=== PATIENT | male | born 1940 | race Caucasian/White ===

== ENCOUNTER 2025-06-07 10:07 | Outpatient (AMB) | payer OTHER, SELFPAY ==
--- NOTE | 2025-06-07 10:12 | A.OFFVIS_ITS ---
Intake Visit Reasons: 6 months f/u Allergies No Known Allergies Allergy (Verified 06/02/25 14:14) Medication List - Last Reconciled 06/07/25 by Sandra Judge MD atorvastatin 40 mg PO DAILY carbidopa-levodopa 25-100 mg tabs PO TID metoprolol succinate ER 50 mg PO DAILY rasagiline 1 mg PO DAILY HPI Comments Details: 85 yr old man with parkinson's disease. He feel sthat his tremor of R hand hasincreased but does not impair him functionally. He is also told that he does not smile. Has had more stumbles. No falls. No trouble turning in bed. Doing okay overall. Tremor is brief and intermittent, primarily in left hand alt with right hand . No difficulty eating/drinking or swallowing. Does not brick picker his feet as well when walking, no falls. Has some stiffness when standing from chair. Sleep is okay. No significant change in cognitive abilities. Started doing some exercises.? Voice is softer and sometimes asks him to speak louder and says he does not speak clearly. His handwriting has always been terrible and has not changed. Left hand tremor started in 2018. [facility] Medical History (Updated 06/07/25 @ 10:14 by Sandra Judge MD) Hyperlipidemia Angina pectoris Parkinson disease Review of Systems Const Details: ??General/Constitutional:? Change in appetitedenies.? Chillsdenies.? Fatiguedenies.? Feverdenies.? Weight gaindenies.? Weight lossdenies. ???Sleep:? Difficulty getting to sleepdenies.? Difficulty maintaining sleepdenies?.? Urge to move legsdenies.? Teeth grindingdenies.? Shouting or Kicking during sleep denies.? Abnormal behavior during sleepdenies.? Excessive sleepdenies.? Snoring denies.? Daytime sleepinessdenies. ???Respiratory:? Shortness of breathdenies.? Chest paindenies.? Coughdenies. ???Cardiovascular:? Chest pain at restdenies.? Chest pain with exertionadmits.? Claudicationdenies .? Dizzinessdenies.? Fluid accumulation in the legsdenies.? Irregular heartbeat denies.? Palpitationsdenies. ???Gastrointestinal:? Abdominal paindenies.? Constipationdenies.? Diarrheadenies.? Difficulty swallowingdenies.? Heartburndenies.? Nauseadenies.? Rectal bleedingdenies. ???Genitourinary:? Frequent urinationdenies.? Urgencydenies.? Incontinencedenies.? Erectile Dysfunctiondenies. ???Musculoskeletal:? Neck paindenies.? Back paindenies.? Muscle achesdenies.? Painful jointsdenies.? Sciaticadenies.? Weaknessdenies. ???Neurologic:? Difficulty swallowingdenies.? Balance difficultydenies.? Coordinationnormal.? Difficulty speakingdenies.? Dizzinessdenies.? Faintingdenies.? Gait abnormality denies.? Headachedenies.? Loss of strengthdenies.? Loss of use of extremity denies.? Low back paindenies.? Memory lossdenies.? Seizuresdenies.? Ticsdenies.? Tingling/Numbnessdenies.? Transient loss of visiondenies.? Tremoradmits. ???Psychiatric:? Anxietydenies.? Auditory/visual hallucinationsdenies.? Delusionsdenies.? Depressed mooddenies.? Stressorsdenies.? Substance abusedenies.? Suicidal thoughtsdenies. Physical Exam Neuro Other: Neurological: Abnormal neurological findings:??Reduced facial expresssion and decreased blinking frequency. Forward leaning posture.?No arm swing on left. Reduced arm swing on right.?Resting Parkinsonian tremor LUE > RUE?. Increased tone and cogwheeling rigidity L > R.?Bradykinesia and?bradyphrenia.?Mental Status:??alert and oriented X 3,?Normal attention, orientation, memory and affect.?Cranial Nerves:??Pupils are equal, round and reactive to light. Fundoscopy shows normal disc bilaterally. External occular muscles are intact. Visual márquez are full, no ptosis. Face is symmetrical, no facial weakness or droop. Facial sensations are normal. Tongue protrudes in midline. Palate elevates symmetrically. Shoulder shrugging is normal..?Motor Examination:??As above,?otherwise normal muscle tone, bulk and strength,No atrophy or fasciculations,No drift of the extended upper extremities,Deep tendon reflexes are 2+.?Straight Leg Raising:??90 degrees.?Sensory Exam:??Normal light touch, temperature, pinprick, vibration and joint-position sensations?,?Rhomberg sign is absent.?Coordination:??no ataxia,?no titubation.?Gait Exam:??Forward leaning posture, no arm swing on left, reduced arm swing on right.?Cerebellar Signs:??Obxeog-xk-jijf and jjdz-jp-meui is normal,?no dysdiadochokinesia?.?Extrapyramidal System:??Tremor, tone/rigidity, facial expressions, arm swing, and posture as above. Bradykinesia and?bradyphrenia.?.?Speech:??Normal.? Mini Mental Status Exam: Level of Consciousness:??Alert.?Orientation:??Knows correct year, month, date, day and season,?Knows correct city, county and state. Knows correct location and floor.?Registration:??Able to register 3 objects.?Attention:??Serial 7's performed accurately.?Recall:??Able to recall 3 out of 3 ob jects.?Language:??Normal spontaneous speech, fluency, repetition,naming, comprehension, reading and writing.?Total Score:??30/30.? General Examination: GENERAL APPEARANCE:??normal,?in no acute distress.?HEART:??S1, S2 normal,?no murmurs.?LUNGS:??clear anteriorly and posteriorly.?MUSCULOSKELETAL:??normal.?EXTREMITIES:??no edema.?PSYCH:??alert, oriented,?cognitive function intact,?cooperative with exam.? Assessment & Plan Assessment & Plan (1) Parkinson disease: Code(s): G20 - Parkinson's disease Category: Medical Plan Increase Olqkidtac-Y-eman to 1 whole tab tid from 08/04 tab tid Coding Level of Care Code Est Pt Level 4 (78668) Diagnoses Parkinson disease G20
--- OUTSIDE RECORDS SUMMARY | 2025-06-07 11:40 | XMS_ITS | Clinical Summary ---
Author Organization [facility] [address] [place] [address] [place] [phone] Phone Care Team Providers Care Trouble Dispatcher Name Role Phone Cherise Santana MD Primary Care Provider [phone] Allergies No known active allergies Medications aspirin 81 mg EC tablet Take 1 tablet (81 mg total) by mouth 1 (one) time each day. 08/12/2016 Active carbidopa-levod opa (SINEMET) 25-100 mg per tablet Take 0.5 tablets by mouth. 06/22/2019 Active docosahexaenoic acid/epa (FISH OIL ORAL) 1 CAP DAILY Active rasagiline (AZILECT) 1 mg tablet Take 1 tablet (1 mg total) by mouth 1 (one) time each day. 07/21/2019 Active nitroglycerin (NITROSTAT) 0.[address] 1 tablet (0.4 mg total) under the tongue every 5 (five) minutes if needed for chest pain. May repeat dose every 5 minutes for up to 3 doses total. 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[employer] and at the time that he reported symptoms, he would have to walk to a class that was up on the top of a hill-while he was traversing this hill, sometimes at a quick pace he would experience the symptoms - Stress test was performed in August 2016-patient exercised for almost 9 minutes on a standard Demetrius protocol to 92% of max predicted heart rate with small, mild, basal inferior ischemia with normal TID ratio and normal systolic function - Was initiated on metoprolol, atorvastatin, aspirin-see further history below -Most recent echocardiogram on 08/14/2022 showing mild, concentric left ventricular hypertrophy with normal LV cavity size and systolic function, normal regional wall motion with ejection fraction of 60 to 65%, normal RV size and systolic function, no hemodynamically significant valve disease, likely upper normal ascending aorta 3.8 cm and mildly dilated transverse aorta 3.1 cm, normal left ventricular diastolic function, normal pulmonary artery systolic pressure Assessment & Plan (02/07/2025 11:37 AM EDT): Assessment & Plan (11/09/2024 10:44 PM EDT): He is not really having symptoms anymore because he no longer goes to [employer] where he would traverse a large hill from the parking lot to his class. He has not had to do this in over a year, so he has not had any anginal symptoms. However, he would like to start going back to the gym, which I think is a great idea. A prescription for sublingual nitroglycerin 10 tablets has been provided, which he is a little bit leery about. I reassured him that he just has to keep it around for emergencies and instructed him on the proper use. He is advised to use it only if he experiences chest pain with exertion. If he experiences chest pressure or elbow discomfort at rest, he should take one tablet and call 911. In the meantime continue current toprol, statin, and aspirin. 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 On Sinemet and rasagiline 2019 Assessment & Plan (02/07/2025 11:37 AM EDT): Pure hypercholesterolemia 04/29/2017 Assessment & Plan (02/07/2025 11:37 AM EDT): Assessment & Plan (11/09/2024 10:44 PM EDT): He is on atorvastatin 40 mg at bedtime for hyperlipidemia management. This medication will be continued. Primary hypertension 08/08/2013 Assessment & Plan (02/07/2025 11:37 AM EDT): Assessment & Plan (11/09/2024 10:44 PM EDT): His blood pressure is well controlled on low-dose metoprolol alone. He has not had any significant lightheadedness or falls. The current regimen of low-dose metoprolol will be continued. 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 Seen by Neuro. Tests negative. Elevated PSA 12/12/2011 Overview (01/23/2025): X1 only in 2005, seen by Uro, biopsy showed PIN but pt did not follow up Assessment & Plan (02/07/2025 11:37 AM EDT): Resolved Problems Problem Noted Date Diagnosed Date Resolved Date Angina of effort ([facility] V24) 08/19/2016 11/09/2024 Immunizations Immunization Administration Dates Next Due COVID-19 (Moderna/Spikevax) 12yo and older 07/24/2023 Influenza Quadravalent, 0.5m l (Fluad) 65yo and older 04/25/2022 Influenza Quadravalent, 0.5m l (Fluzone High-dose) 65yo and older 06/19/2023,04/10/2021 Influenza Quadravalent, MDCK , 0.5ml, preservative free (Flucelvax) 6mo and older 08/23/2019,08/10/2018 Influenza trivalent, 0.5mL ( Fluzone High-dose) 65yo and older 05/02/2024,06/19/2023,04/25/2022,04/10,04/06/2020,05/10/2016 Moderna (age 6mo & older) Bi valent, COVID-19, 0.5 mL or 0.25 mL dosage 12/08/2022,04/25/2022 Moderna SARS-CoV-2 COVID-19, mRNA, LNP-S, preservative free 07/24/2023 Pneumococcal conjugate 13 va lent (Prevnar 13, PCV13) 2mo and older 08/20/2015 Pneumococcal polysaccharide 23 valent (Pneumovax 23) 2yo and older 10/01/2007 Td Tetanus diptheria (Tdvax) 7yo and older 02/03/2024,08/24/2008,04/09/1999 Tdap Tetanus diptheria acell ular pertussis (Boostrix; Adacel) 7yo and older 08/08/2013 Zoster Live 04/21/2012 Zoster recombinant (Shingrix ) 19yo and older 01/19/2020,09/24/2019 Surgical History Surgery Date Site/Laterality Comments COLONOSCOPY 12/29/07 PROCEDURE: MO COLONOSCOPY STOMA DX INCLUDING COLLJ SPEC SPX; COMMENT: Normal colon exam, up to cecum, regular/good preparation OTHER SURGICAL HISTORY PROCEDURE: HISTORY OTHER; COMMENT: prostate TRUSP 2006 - PIN (Dr. 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 Single episode in 2007. Seen by Neuro. Tests negative. Pure hypercholesterolemia 04/29/2017 Primary hypertension 08/08/2013 Prediabetes 08/05/2023 Elevated PSA 12/12/2011 Formatting of th is note might be different from the original. 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[employer] and at the time that he reported symptoms, he would have to walk to a class that was up on the top of a hill-while he was traversing this hill, sometimes at a quick pace he would experience the symptoms- Stress test was perf Family History Medical History Relation Name Comments Alzheimer's disease Brother age 74 Colon cancer Father in his 60's, [place] Dementia Maternal Grandmother Other: old age Mother at 90 Alzheimer's disease Uncle maternal second u ncle with Parkinson's Relation Name Status Comments Brother Father Maternal Grandfather Maternal Grandmother Mother Paternal Grandfather Paternal Grandmother Uncle maternal Social History Tobacco Use Types Packs/Day Years Used Date Smoking Tobacco: Former Cigarettes Q uit: 08/03/1979 Smokeless Tobacco: Never Tobacco Cessation:Counseling Given: Not Answered Alcohol Use Standard Drinks/Week Comments Not Currently 0 (1 standard drink = 0.6 oz pur e alcohol) Housing Instability Answer Date Recorde d Are you worried that in the next 2 months you may not have stable housing? No 02/07/2025 Food Access & Nutrition Answer Date Rec orded Do you have access to a vari ety of food including fruits and vegetables? Yes 02/07/2025 Access to Healthcare Answer Date Record ed Within the last 3 months, penelope cox many times did you visit the emergency department for your medical care? 0 02/07/2025 Health Literacy Answer Date Recorded How often do you need to hav e someone help you when you read instructions, pamphlets, or other written material from your doctor or pharmacy? Never 02/07/2025 Caregiver: How often do you need to have someone help you when you read instructions, pamphlets, or other written material from your doctor or pharmacy? Not on file 02/07/2025 Financial Risk Answer Date Recorded How hard is it for you to pa y for the very basics like food, housing, medical care, and air conditioning / heating? Not very hard 02/07/2025 Transportation Answer Date Recorded Has the lack of transportati on kept you from meetings, work, or from getting things needed for daily living? No Has the lack of transportati on kept you from medical appointments or from getting medications? No 02/07/2025 Social Isolation Answer Date Recorded How often do you feel lonely or isolated from th ose around you? Never 02/07/2025 Food Risk Answer Date Recorded Within the past 12 months we worried whether our food would run out before we got money to buy more. Never true 02/07/2025 Within the past 12 months th e food we bought just didn't last and we didn't have money to get more. Never true 02/07/2025 Dependent Care Answer Date Recorded Do you need help finding or paying for care for your loved ones. For example, director of early childhood or elderly care for an older adult? No 02/07/2025 Education Answer Date Recorded Do you think completing more education or training, like finishing a GED, going to college, or learning a trade, would be helpful for you? N/A 02/07/2025 Employment and Income Answer Date Recor ded During the last four weeks, have you been actively looking for work? No 02/07/2025 Living Situation Answer Date Recorded What is your living situation? Unrecognized valu e 02/07/2025 Sex and Gender Information Value Date Recorded Sex Assigned at Not on file Legal Sex Male 11:05 PM EST Gender Identity Not on file Sexual Orientation Not on file Obstetrics History Last Filed Vital Signs Vital Sign Reading Time Taken Comments Blood Pressure 102/56 02/07/2025 10:51 AM EDT Pulse 52 02/07/2025 10:51 AM EDT Temperature 36.1 C (97 F) 02/07/2025 10:51 AM EDT Respiratory Rate 14 02/07/2025 10:51 AM EDT Oxygen Saturation 96% 02/07/2025 10:51 AM EDT Inhaled Oxygen Concentration - - Weight 72.3 kg (159 lb 6.4 oz) 02/07/2025 10:51 AM EDT Height 172.7 cm (5' 8 ) 02/07/2025 10:51 AM EDT Body Mass Index 24.24 02/07/2025 10:51 AM EDT Plan of Treatment Upcoming Encounters Date Type Department Care Team (Late st Contact Info) Description 08/10/2025 1:30 PM EST Office Visit Adult Medicine [facility] [address] [place] [phone] Miguelina Welch PA [address] [place], [place] Health Maintenance Due Date Last Done Comments RSV Immunization Adult Patients (1 - 1-dose 75+ series) 2016 COVID-19 Vaccine ( season) 2025 05/02/2024, 07/24/2023, 07/24/2023, Additional history exists Influenza Vaccine (#1) 2025 , 06/19/2023, 06/19/2023, Additional history exists Hypertension/CHF/CAD Annual BMP Blood Test 08/05/2025 08/05/2024 Falls Risk Assessment 02/07/2026 02/07/2025 Medicare Annual Wellness Visit 02/07/2026 02/07/2025 Social Influencers of Health Screening 02/07/2026 02/07/2025 Cholesterol Screening (Lipid Panel) 08/05/2029 08/05/2024, 08/04/2023 DTaP,Tdap,and Td Vaccines (5 - Td or Tdap) 02/02/2034 02/03/2024, 08/08/2013, 08/24/2008, Additional history exists Pneumococcal Vaccine: 50+ Years Completed 08/20/2015, 10/01/2007 Zoster Vaccines Completed 01/19/2020, 09/04, 04/21/2012 Depression Screening Completed 02/07/2025 HIB Vaccines Aged Out No longer eligi ble based on patient's age to complete this topic HPV Vaccines Aged Out No longer eligi ble based on patient's age to complete this topic Hepatitis A Vaccines Aged Out No long er eligible based on patient's age to complete this topic Hepatitis B Vaccines Aged Out No long er eligible based on patient's age to complete this topic IPV Vaccines Aged Out No longer eligi ble based on patient's age to complete this topic MMR Vaccines Aged Out No longer eligi ble based on patient's age to complete this topic Meningococcal ACWY Vaccine Aged Out N o longer eligible based on patient's age to complete this topic Meningococcal B Vaccine Aged Out No l onger eligible based on patient's age to complete this topic RSV Immunization Patients Under 20 months Aged Out No longer eligible based on patient's age to complete this topic Varicella Vaccines Aged Out No longer eligible based on patient's age to complete this topic Procedures Procedure Name Priority Date/Time Associated Diagnosis Comments COMPREHENSIVE METABOLIC PANEL Routine 08/05/2024 10:47 AM EST Primary hypertension Prediabetes Pure hypercholesterolemia Elevated PSA Parkinson's disease, unspecified whether dyskinesia present, unspecified whether manifestations fluctuate (CMS/HCC V24, CMS/HCC V28) LIPID PANEL WITH REFLEX TO DIRECT LDL Routine 08/05/2024 10:47 AM EST Pure hypercholesterolemia from Last 3 Months or Most Recently Relevant to Health Maintenance Results * Lipid panel with reflex to direct LDL (08/05/2024 10:47 AM EST) Cholesterol 153 0 - 200 mg/dL LAB CHEMISTRY METHOD 08/05/2024 2:11 PM [facility] Triglycerides 60 0 - 150 mg/dL LAB CHEMISTRY METHOD 08/05/2024 2:11 PM [facility] HDL 73 >=40 mg/dL LAB CHEMISTRY METHOD 08/05/2024 2:11 PM [facility] LDL Calculated 68 0 - 100 mg/dL LAB CHEMISTRY METHOD 08/05/2024 2:11 PM [facility] VLDL Cholesterol Aba 12 mg/dL LAB CHEMISTRY METHOD 08/05/2024 2:11 PM [facility] Non HDL Chol. (LDL+VLDL) 80 <145 mg/dL LAB CHEMISTRY METHOD 08/05/2024 2:11 PM [facility] Chol/HDL Ratio 2.1 0.0 - 4.4 LAB CHEMISTRY METHOD 08/05/2024 2:11 PM [facility] Blood Venous blood specimen / Unknown Venipuncture / Unknown 08/05/2024 10:47 AM EST 08/05/2024 10:47 AM EST us Miguelina YEE LAB BLOOD ORDERABLES Final Re sult [facility] [address] [place] [address], [place] [phone] * Comprehensive metabolic panel (08/05/2024 10:47 AM EST) Sodium 142 133 - 145 mmol/L LAB CHEMISTRY METHOD 08/05/2024 2:11 PM [facility] Potassium 4.3 3.5 - 5.5 mmol/L LAB CHEMISTRY METHOD 08/05/2024 2:11 PM [facility] Chloride 108 96 - 110 mmol/L LAB CHEMISTRY METHOD 08/05/2024 2:11 PM [facility] CO2 30 21 - 32 mmol/L LAB CHEMISTRY METHOD 08/05/2024 2:11 PM [facility] Anion Gap 4 3 - 11 LAB CHEMISTRY METHOD 08/05/2024 2:11 PM [facility] Glucose 99 70 - 100 mg/dL LAB CHEMISTRY METHOD 08/05/2024 2:11 PM [facility] BUN 21 5 - 25 mg/dL LAB CHEMISTRY METHOD 08/05/2024 2:11 PM [facility] Creatinine 1.12 0.70 - 1.30 mg/dL LAB CHEMISTRY METHOD 08/05/2024 2:11 PM [facility] eGFR 65 >=60 mL/min/1. 73m2 LAB CHEMISTRY METHOD 08/05/2024 2:11 PM [facility] Comment:Calculation based on the Chronic Kidney Disease Epidemiology Collaboration (CKD-EPI) equation refit without adjustment for race. BUN/Creatinine Ratio 18.8 LAB CHEMISTRY METHOD 08/05/2024 2:11 PM [facility] Calcium 9.2 8.5 - 10.5 mg/dL LAB CHEMISTRY METHOD 08/05/2024 2:11 PM [facility] AST (SGOT) 18 10 - 42 unit/L LAB CHEMISTRY METHOD 08/05/2024 2:11 PM [facility] ALT (SGPT) 16 10 - 60 unit/L LAB CHEMISTRY METHOD 08/05/2024 2:11 PM [facility] Alkaline Phosphatase 63 42 - 121 unit/L LAB CHEMISTRY METHOD 08/05/2024 2:11 PM [facility] Total Protein 6.7 6.0 - 8.0 g/dL LAB CHEMISTRY METHOD 08/05/2024 2:11 PM [facility] Albumin 3.8 3.2 - 5.0 g/dL LAB CHEMISTRY METHOD 08/05/2024 2:11 PM [facility] Total Bilirubin 0.7 0.0 - 1.4 mg/dL LAB CHEMISTRY METHOD 08/05/2024 2:11 PM [facility] Blood Venous blood specimen / Unknown Venipuncture / Unknown 08/05/2024 10:47 AM EST 08/05/2024 10:47 AM EST us Miguelina YEE LAB BLOOD ORDERABLES Final Re sult [facility] [address] [place] [address], from Last 3 Months or Most Recently Relevant to Health Maintenance Insurance MEDICARE [facility] Care Teams Trouble Dispatcher Relationship Specialty Start Date End Date Cherise Santana MD [address] [place] [address] PCP - General Internal Medicine 01/01/21
== END 2025-06-07 10:22 | disposition home or self-care (01) ==
LOC: HO.HSM 10:07
PROVIDERS: PCP Internal Medicine; Visit Provider Psychiatry & Neurology Neurology
DX: G20.C Parkinsonism, unspecified (principal)
CPT/HCPCS: 99214

== ENCOUNTER → 2025-06-07 10:07 | Outpatient (BNVA) | payer OTHER, SELFPAY | PROVIDERS: PCP Internal Medicine; Visit Provider Psychiatry & Neurology Neurology | DX: G20.C Parkinsonism, unspecified (principal) | CPT/HCPCS: 99212 ==